=== PATIENT | female | born 1995 | race African-American/Black ===

== ENCOUNTER 2018-11-20 00:32 | Emergency (ER) | payer BC, SELFPAY ==
[2018-11-20] MEDS ORDERED: Famotidine/PF 20 mg/2ml Vial ONE (01:01)
[2018-11-20] MEDS ORDERED: Dexamethasone 10 MG/ML VIAL ONE (01:01)
[2018-11-20] MEDS ORDERED: hydrOXYzine 25 MG TAB ONE ×2 (01:01→01:02)
[2018-11-20] MEDS ORDERED: Famotidine 20 MG TAB ONE ×2 (01:03→01:21)
[2018-11-20] MEDS ORDERED: diphenhydrAMINE 50 MG/ML VIAL ONE (01:40)
[2018-11-20] MEDS ORDERED: diphenhydrAMINE 25 MG CAP ONE (01:41)
== END 2018-11-20 03:39 | disposition home or self-care (01) ==
LOC: ERS 00:32
DX: L50.0 Allergic urticaria (principal); F41.9 Anxiety disorder, unspecified
CPT/HCPCS: 99282; J1100; J1200; Q0163; S0028

== ENCOUNTER 2018-11-21 06:15 | Emergency (ER) | payer BC, SELFPAY ==
[2018-11-21] MEDS ORDERED: predniSONE 20 MG TAB ONE (06:31)
[2018-11-21] MEDS ORDERED: Famotidine 20 MG TAB ONE (06:31)
[2018-11-21] MEDS ORDERED: methylPREDNISolone Sod Succ/PF 125 MG/2 ML VIAL ONE (06:34)
[2018-11-21] MEDS ORDERED: EPINEPHrine 1 MG/10 ML Abboject SYRINGE ONE (07:49)
[2018-11-21] MEDS ORDERED: Acetaminophen 500 MG TAB ONE (07:57)
[2018-11-21] MEDS ORDERED: Ketorolac Tromethamine 30 MG/ML VIAL ONE (09:35)
== END 2018-11-21 10:25 | disposition home or self-care (01) ==
LOC: ERS 06:15
DX: L50.9 Urticaria, unspecified (principal); F41.9 Anxiety disorder, unspecified; Z79.899 Other long term (current) drug therapy
CPT/HCPCS: 96361; 96372; 96374; 96375; J0171; J1885; J2930; J7512